=== PATIENT | female | born 1965 | race Two or more races ===

== ENCOUNTER 2019-09-24 07:32 | Inpatient (IN) | payer BC ==
[2019-09-24 07:39] VITALS: BMI 33.2
[2019-09-24 08:41] LABS: BASO % 0.6 % (0-2.0); EOS % 1.2 % (0-4.5); HEMATOCRIT 34.9 % (32.4-45.2); HEMOGLOBIN 11.3 GM/dL (10.7-15.3); MCHC 32.5 g/dl (32.0-36.0); MEAN CELL VOLUME 83.2 fl (80-96); MEAN PLT VOLUME 8.9 fl (7.5-11.1); MONO % 5.9 % (3.8-10.2); NEUT % 53.3 % (42.8-82.8); PLATELET COUNT 254 K/MM3 (134-434); RBC 4.19 M/mm3 (3.60-5.2); RDW 14.8 % (11.6-15.6); WHITE BLOOD COUNT 6.4 K/mm3 (4.0-10.0)
[2019-09-24 08:47] LABS: INR 0.99 (0.83-1.09); PROTHROMBIN TIME (PATIENT) 11.7 SEC (9.7-13.0)
[2019-09-24 08:50] LABS: ACTIVATED PTT 32.6 SECONDS (25.2-36.5)
[2019-09-24 09:15] LABS: ALBUMIN 3.7 g/dl (3.4-5.0); ALK PHOS 93 U/L (45-117); ANION GAP 6 MMOL/L (8-16); BILIRUBIN,TOTAL 0.6 mg/dL (0.2-1); BLOOD UREA NITROGEN 13.4 mg/dL (7-18); CALCIUM 9.1 mg/dL (8.5-10.1); CHLORIDE 108 mmol/L (98-107); CO2 27 mmol/L (21-32); CREATININE 0.9 mg/dL (0.55-1.3); GLUCOSE,RANDOM 109 mg/dL (74-106); MAGNESIUM 2.4 mg/dL (1.8-2.4); N-TERMINAL BNP 167.5 pg/ml (5-125); POTASSIUM 4.5 mmol/L (3.5-5.1); SGOT/AST 20 U/L (15-37); SGPT/ALT 23 U/L (13-61); SODIUM 140 mmol/L (136-145); TOT PROT 7.9 g/dl (6.4-8.2)
[2019-09-24] MEDS ORDERED: ENOXAPARIN NA (PORCINE) 40 MG/0.4 ML DISP.SYRIN SQ SCH (10:30)
[2019-09-24] MEDS ORDERED: ASPIRIN COATED 81 MG TABLET.EC PO SCH (10:30)
[2019-09-24] MEDS ORDERED: ASPIRIN COATED 81 MG TABLET.EC ONE (10:55)
[2019-09-24] MEDS ORDERED: ENOXAPARIN NA (PORCINE) 40 MG/0.4 ML DISP.SYRIN SQ ONE (10:56)
[2019-09-24 12:13] LABS: CHOLESTEROL 167 mg/dL (50-200); HDL CHOLESTEROL 57 mg/dL (40-60); LDL CHOLESTEROL (ONLY SJRH) 96 mg/dL (5-100); PHOSPHOROUS 3.1 mg/dL (2.5-4.9); TRIGLYCERIDES 85 mg/dL (0-150)
[2019-09-24 17:58] VITALS: BP 160/87; PULSE 59; TEMP 97.1
[2019-09-25] MEDS ORDERED: LEVOTHYROXINE NA 50 MCG TABLET (FP) PO SCH (07:00)
[2019-09-25] MEDS ORDERED: HYDROCHLOROTHIAZIDE 12.5 MG CAPSULE (FP) PO SCH (10:00)
== END 2019-09-24 17:12 | disposition home or self-care (01) | DRG 313 ==
LOC: JER 07:32 → JERBED 09:03 → OBSVTOIN 10:15
PROVIDERS: ADMIT Internal Medicine; ATTEND Internal Medicine
DX: R07.89 Other chest pain (principal); I10 Essential (primary) hypertension; E78.00 Pure hypercholesterolemia, unspecified; E66.9 Obesity, unspecified; E55.9 Vitamin D deficiency, unspecified; Z68.33 Body mass index [BMI] 33.0-33.9, adult; F41.8 Other specified anxiety disorders; N64.4 Mastodynia; E03.9 Hypothyroidism, unspecified; Z82.49 Family history of ischemic heart disease and other diseases of the circulatory system
CPT/HCPCS: 36415; 71046-TC-FY; 80053; 80061; 82550; 82553; 83036; 83721; 83735; 83880; 84100; 84436; 84443; 84484; 85025; 85610; 85730; 93005; 93010; 99285-25; G0378; U0003